=== PATIENT | male | born 1985 | race Caucasian/White ===

== ENCOUNTER → 2016-09-23 | Outpatient (CLI) | payer OTHER ==
[~2016-09-23] MED LIST: 'PARAFON FORTE500 M1 PO; CLINDAMYCIN150 MG PO; HYDROCODONE BIT1 T11 PO; NAPROSYN500 MG PO; NKHM; ULTRAM50 MG PO
== END | disposition home or self-care (01) ==
LOC: RAD 12:31
DX: M46.1 Sacroiliitis, not elsewhere classified (principal); M54.5 Low back pain; M79.605 Pain in left leg; M25.562 Pain in left knee

== ENCOUNTER 2016-10-29 00:17 | Emergency (ER) | payer OTHER ==
[~2016-10-29] VITALS: Ht 187.9 cm; Wt 86.2 kg
[2016-10-29 00:23] VITALS: BP 132/75
[2016-10-29] MEDS ORDERED: PREDNISONE10 MG PO (00:45)
== END 2016-10-29 01:29 | disposition home or self-care (01) ==
LOC: ED 00:17
DX: L24.7 Irritant contact dermatitis due to plants, except food (principal); F17.200 Nicotine dependence, unspecified, uncomplicated; Z88.4 Allergy status to anesthetic agent

== ENCOUNTER 2017-12-07 05:38 | Emergency (ER) | payer OTHER ==
[~2017-12-07] VITALS: Ht 187.9 cm; Wt 90.7 kg
[~2017-12-07 05:38] MED LIST changes: +PREDNISONE10 MG PO
[2017-12-07 05:40] VITALS: BP 147/72
[2017-12-07] MEDS ORDERED: Kenalog 0.5% Cr15 GM T (05:57)
[2017-12-07] MEDS ORDERED: PREDNISONE20 M1 PO (05:57)
== END 2017-12-07 06:16 | disposition home or self-care (01) ==
LOC: ED 05:38
DX: L25.9 Unspecified contact dermatitis, unspecified cause (principal); Z79.899 Other long term (current) drug therapy; Z88.4 Allergy status to anesthetic agent

== ENCOUNTER 2018-06-22 14:53 | Emergency (ER) | payer OTHER ==
[~2018-06-22] VITALS: Ht 187.9 cm; Wt 90.7 kg
[~2018-06-22 14:53] MED LIST changes: +Kenalog 0.5% Cr15 GM T; +PREDNISONE20 M1 PO
[2018-06-22 14:56] VITALS: BP 125/69
[2018-06-22] MEDS ORDERED: NAPROSYN500 MG PO (17:19)
[2018-06-22] MEDS ORDERED: PREDNISONE50 MG PO (17:19)
== END 2018-06-22 17:30 | disposition home or self-care (01) ==
LOC: ED 14:53
DX: M25.511 Pain in right shoulder (principal); F17.200 Nicotine dependence, unspecified, uncomplicated; Z88.4 Allergy status to anesthetic agent; X58.XXXA Exposure to other specified factors, initial encounter; Y93.89 Activity, other specified; Y92.099 Unspecified place in other non-institutional residence as the place of occurrence of the external cause; Y99.8 Other external cause status

== ENCOUNTER 2019-01-17 10:21 | Emergency (ER) | payer OTHER ==
[~2019-01-17] VITALS: Ht 187.9 cm; Wt 85.3 kg
[~2019-01-17 10:21] MED LIST changes: +PREDNISONE50 MG PO
[2019-01-17 10:22] VITALS: BP 146/78
[2019-01-17 10:38] LABS: BILIRUBIN NEGATIVE (NEGATIVE); BLOOD TRACE-INTACT (NEGATIVE); CLARITY SL CLOUDY (CLEAR); COLOR YELLOW (YELLOW); GLUCOSE NEGATIVE (NEGATIVE); KETONE 2+ (NEGATIVE); LEUKO ESTERASE NEGATIVE (NEGATIVE); NITRITE NEGATIVE (NEGATIVE); SPECIFIC GRAVITY >= 1.030 (1.005-1.030); UROBILINOGEN 0.2 E.U./dl (0.2-1.0)
[2019-01-17 10:49] LABS: BACTERIA 1+; MUCOUS 2+
[2019-01-17 10:52] LABS: BASO % 0.3 % (0.0-1.0); EOS % 0.3 % (1.0-4.0); HEMATOCRIT 45.3 % (42.0-52.0); HEMOGLOBIN 15.4 g/dl (14.0-18.0); LYMPH # 1.5 10*3/uL (1.3-4.4); LYMPH % 15.2 % (27.0-41.0); MEAN CELL VOLUME 89.9 fl (80.0-94.0); MEAN CORPUSCULAR HGB 30.6 pg (27.0-31.0); MEAN PLATELET VOLUME 9.1 fl (9.6-12.3); MONO # 0.7 10*3/uL (0.1-1.0); MONO % 7.5 % (3.0-9.0); NEUT # 7.5 10*3/uL (2.3-7.9); NEUT % 76.5 % (47.0-73.0); PLATELET COUNT AUTOMATED 468 10*3/uL (130-400); RED BLOOD COUNT 5.04 10*6/uL (4.50-5.90); RED CELL DISTRI WIDTH 13.7 % (0-14.5); WHITE BLOOD COUNT 9.9 10*3/uL (4.8-10.8)
[2019-01-17 11:02] LABS: ALKALINE PHOSPHATASE 73 U/L (45-117); BUN 14 mg/dl (7-24); CHLORIDE 101 mmol/L (98-107); CREATININE 0.83 mg/dL (0.70-1.30); POTASSIUM 4.2 mmol/L (3.5-5.1); SGOT/AST 52 IU/L (3-35); SGPT/ALT 54 U/L (12-78); SODIUM 135 mmol/L (136-145); TOTAL PROTEIN 7.6 gm/dL (6.4-8.2)
[2019-01-17 11:09] LABS: TROPONIN I < 0.015 ng/ml (<0.045)
[2019-01-17] MEDS ORDERED: ZOFRAN4 MG PO (13:09)
== END 2019-01-17 13:15 | disposition home or self-care (01) ==
LOC: ED 10:21
PROVIDERS: Internal Medicine
DX: B34.9 Viral infection, unspecified (principal); R11.2 Nausea with vomiting, unspecified; F17.200 Nicotine dependence, unspecified, uncomplicated; Z88.4 Allergy status to anesthetic agent; Z79.899 Other long term (current) drug therapy

== ENCOUNTER → 2019-02-12 | Outpatient (CLI) | payer OTHER ==
[~2019-02-12] MED LIST changes: +ZOFRAN4 MG PO
== END | disposition home or self-care (01) ==
LOC: RAD 15:57
DX: S46.911A Strain of unspecified muscle, fascia and tendon at shoulder and upper arm level, right arm, initial encounter (principal); X58.XXXA Exposure to other specified factors, initial encounter; Y93.89 Activity, other specified; Y92.89 Other specified places as the place of occurrence of the external cause; Y99.8 Other external cause status

== ENCOUNTER → 2021-03-18 | Outpatient (CLI) | payer OTHER | END | disposition home or self-care (01) | LOC: RAD 14:44 | PROVIDERS: ATTEND Internal Medicine | DX: M19.041 Primary osteoarthritis, right hand (principal); M47.812 Spondylosis without myelopathy or radiculopathy, cervical region; R20.0 Anesthesia of skin ==